=== PATIENT | female | born 1950 | race Caucasian/White ===

== ENCOUNTER 2024-02-07 08:32 | Day surgery (SDC) | payer OTHER, MEDICARE ==
[2024-02-01 11:27] LABS: BASOPHILS # (AUTO) 0.1 K/uL (0.0-0.2); BASOPHILS % (AUTO) 1.5 % (0.0-2.0); EOSINOPHILS # (AUTO) 0.2 K/uL (0.0-0.4); EOSINOPHILS % (AUTO) 2.5 % (0.0-4.0); HEMATOCRIT 45.8 % (36-48); HEMOGLOBIN 15.3 g/dL (12.0-16.0); LYMPHOCYTES # (AUTO) 1.4 K/uL (1.0-5.5); LYMPHOCYTES % (AUTO) 19.5 % (20.5-51.5); MEAN CORPUSCULAR HEMOGLOBIN 32 pg (27-31); MEAN CORPUSCULAR HGB CONC 33 % (32-36); MEAN CORPUSCULAR VOLUME 95 fL (79.0-98.0); MONOCYTES # (AUTO) 0.5 K/uL (0.0-1.0); MONOCYTES % (AUTO) 6.8 % (1.7-9.3); NEUTROPHILS # (AUTO) 4.9 K/uL (1.8-7.7); NEUTROPHILS % (AUTO) 69.7 % (40.0-70.0); PLATELET COUNT (AUTO) 258 K/uL (130-430); RED CELL DISTRIBUTION WIDTH 12.5 % (9.0-15.0)
[2024-02-01 11:48] LABS: PROTHROMBIN TIME 10.4 SECS (9.5-12.5)
[2024-02-01 11:49] LABS: ALANINE AMINOTRANSFERASE 21 U/L (12-78); ALBUMIN 3.7 g/dL (3.4-4.8); ANION GAP 8 (5-15); ASPARTATE AMINOTRANSFERASE 21 U/L (10-37); CALCIUM 9.1 mg/dL (8.4-11.0); CARBON DIOXIDE 28 mmol/L (23-29); CHLORIDE 106 mmol/L (98-107); CREATININE 0.89 mg/dL (0.55-1.30); GLUCOSE 97 mg/dL (74-106); POTASSIUM 4.1 mmol/L (3.5-5.1); SODIUM SERUM 142 mmol/L (136-145); TOTAL BILIRUBIN 0.4 mg/dL (0.0-1.0); UREA NITROGEN, BLOOD 15 mg/dL (8-21)
[~2024-02-07] VITALS: Ht 165.1 cm; Wt 58.5 kg
[~2024-02-07 08:32] MED LIST: ACETAMINOPHEN 500 MG TABLET PO ONE; CEFAZOLIN SOD 2 GM in D5W 50 ML IV ONE; GABAPENTIN 300 MG CAPSULE PO ONE; oxyCODONE HCL 10 MG TAB.ER.12H PO ONE
[2024-02-07] MEDS ORDERED: oxyCODONE HCL 10 MG TAB.ER.12H PO ONE (09:04)
[2024-02-07] MEDS ORDERED: GABAPENTIN 300 MG CAPSULE ONE (09:04)
[2024-02-07] MEDS ORDERED: ACETAMINOPHEN 500 MG TABLET ONE (09:12)
[2024-02-07] MEDS: GABAPENTIN 300 MG CAPSULE PO ONE (09:31)
[2024-02-07] MEDS: ACETAMINOPHEN 500 MG TABLET PO ONE (09:31)
[2024-02-07] MEDS ORDERED: LIDOCAINE MPF 2% 20 MG/1 ML, 5 ML VIAL INH ONE (11:10)
[2024-02-07] MEDS ORDERED: ONDANSETRON HCL 4 MG/2 ML VIAL ONE (11:10)
[2024-02-07] MEDS ORDERED: ETOMIDATE 20 MG/ 10 ML VIAL (AMIDATE) ONE (11:10)
[2024-02-07] MEDS ORDERED: fentaNYL CITRATE/PF 100 MCG/2 ML AMP ONE (11:10)
[2024-02-07] MEDS ORDERED: NS IRRIG SOLN 1000 ML IR ONE (11:10)
[2024-02-07] MEDS ORDERED: GLYCOPYRROLATE 0.2 MG/ML VIAL ONE (11:10)
[2024-02-07] MEDS ORDERED: ePHEDrine sulfate 50 MG/ML VIAL ONE (11:10)
[2024-02-07] MEDS ORDERED: BUPIVACAINE /PF 0.25% 30 ML VIAL INJ ONE (11:10)
[2024-02-07] MEDS ORDERED: METOCLOPRAMIDE HCL 10 MG/2 ML VIAL ONE (11:10)
[2024-02-07] MEDS ORDERED: PHENYLEPHRINE HCL 10 MG/ML VIAL (NEOSYNEPHRINE) ONE (11:10)
[2024-02-07] MEDS ORDERED: WATER FOR IRRIGATION,STERILE 1,000 ML IRRIG.SOLN IR ONE (11:10)
[2024-02-07] MEDS ORDERED: TRANEXAMIC ACID 1,000 MG/10 ML VIAL ONE (11:10)
[2024-02-07] MEDS ORDERED: VANCOMYCIN HCL 1000 MG/VIAL IV ONE (11:10)
[2024-02-07] MEDS ORDERED: SEVOFLURANE 15 MIN GAS INH ONE (11:10)
[2024-02-07] MEDS ORDERED: LR 1,000 ML IV.SOLN IV ONE (11:10)
[2024-02-07] MEDS ORDERED: KETOROLAC TROMETHAMINE 30 MG VIAL ONE ×2 (11:10→18:24)
[2024-02-07] MEDS: oxyCODONE HCL 10 MG TAB.ER.12H PO ONE (11:16)
[2024-02-07] MEDS ORDERED: MEPERIDINE 50 MG/ML VIAL IVP PRN ×2 (12:45)
[2024-02-07] MEDS ORDERED: LR 1,000 ML IV SCH (12:45)
[2024-02-07] MEDS ORDERED: ONDANSETRON HCL 4 MG/2 ML VIAL IVP PRN (12:45)
[2024-02-07 13:27] VITALS: PULSE 52; RESP 18; O2SAT 98
[2024-02-07 14:18] VITALS: BP_SYST 130
[2024-02-07] MEDS: CEFEPIME 1 GM in D5W 50 ML IV SCH (17:00)
[2024-02-07] MEDS ORDERED: TAMSULOSIN HCL 0.4 MG CAP PO ONE (17:45)
[2024-02-07] MEDS: KETOROLAC TROMETHAMINE 30 MG VIAL IVP ONE (18:15)
[2024-02-08] MEDS ORDERED: TAMSULOSIN HCL 0.4 MG CAP PO SCH (09:00)
== END 2024-02-07 19:15 | disposition home or self-care (01) ==
LOC: SDS 08:32 → SMU 08:32 → SDS 19:15
PROVIDERS: ATTEND Orthopaedic Surgery Sports Medicine
DX: M16.11 Unilateral primary osteoarthritis, right hip (principal); M25.751 Osteophyte, right hip; M25.551 Pain in right hip; I70.0 Atherosclerosis of aorta; I10 Essential (primary) hypertension; E03.9 Hypothyroidism, unspecified; Z98.890 Other specified postprocedural states; Z88.0 Allergy status to penicillin; Z88.5 Allergy status to narcotic agent; Z88.8 Allergy status to other drugs, medicaments and biological substances; Z79.890 Hormone replacement therapy; Z79.899 Other long term (current) drug therapy
CPT/HCPCS: 36415; 71046; 72170-TC; 76000; 80053; 85025; 85610; 85730; 87081; 88305; 88311; 97110-GP; 97116-GP; 97530-GP; C1713; C1776; J0690; J0692; J1885; J2405; J2765; J3010; J3370; J3490; J7060; J7120